=== PATIENT | female | born 1995 ===

== ENCOUNTER 2017-10-12 11:38 | Day surgery (SDC) | payer OTHER ==
[2017-10-11 10:50] VITALS: BMI 31.6
[2017-10-12] MEDS ORDERED: HYDROmorphone 0.5 mg/0.5 ml ISec IVP PRN (13:04)
[2017-10-12] MEDS ORDERED: Propofol 10 mg/ml Inj (20 ML) ONE ×2 (13:13→13:14)
[2017-10-12] MEDS ORDERED: Midazolam 2 MG/2 ML VIAL ONE (13:13)
[2017-10-12] MEDS ORDERED: Lactated Ringer's 1,000 ML IV ONE ×2 (13:15→14:50)
--- NOTE | 2017-10-12 14:10 | PCM.SURG1 ---
Surgeon's Initial Post Op Note - Surgeon's Notes Surgeon: Shea Machado MD Aircraft Structural Repair Mechanic: none Type of Anesthesia: General LMA Pre-Operative Diagnosis: REtained Intrauterine device, foreign body Operative Findings: anterverted utuers, no cervical strings from cervical os of iud, iud retained at fundus with strings wraped around body of iud anterior, removed successfuly with hyserospic resection and guidance Post-Operative Diagnosis: same as above Operation Performed: Hysterosciop removal of foreign body, intrauterine device Specimen/Specimens Removed: intrauterine device Estimated Blood Loss: EBL {In ML}: 50 Blood Products Given: N/A Drains Used: No Drains Post-Op Condition: Good Date of Surgery/Procedure: 10/12/17 Time of Surgery/Procedure: 13:00
[2017-10-12 18:37] VITALS: BP 109/77; PULSE 79; RESP 20; TEMP 98; O2SAT 97
--- NOTE | 2017-10-13 02:01 | OP ---
PROCEDURE DATE: 10/12/2017 PREOPERATIVE DIAGNOSIS: Retained intrauterine device foreign body. POSTOPERATIVE DIAGNOSIS: Retained intrauterine device foreign body. OPERATION PERFORMED: Hysteroscopic removal of foreign body intrauterine device. OPERATIVE FINDINGS: Anteverted uterus, no cervical string noted from cervical os of IUD. IUD retained at fundus with strings wrapped around the body of the IUD pointing towards the fundus, removed successfully with hysteroscopic resection . SURGEON: Shea Machado MD. FUNERAL PREARRANGEMENT COUNSELOR: None. TYPE OF ANESTHESIA: General LMA. SPECIMEN REMOVED: Intrauterine device. ESTIMATED BLOOD LOSS: 50 mL. BLOOD PRODUCTS: None. COMPLICATIONS: None. DESCRIPTION OF PROCEDURE: The patient was taken to the operating room, where she was given general anesthesia. Once it was found to be adequate, she was positioned on the operating table in dorsal supine position with the legs supported using stirrups. The patient was then prepped and draped in the usual sterile fashion. A bimanual exam was performed with above-mentioned findings. A Joaquin retractor was placed in the anterior and posterior fornix of the vagina. The cervix was adequately visualized. A single-toothed tenaculum was placed on the anterior lip of the cervix. There was no strings visualized at the cervical os. IUD hook was attempted to remove the intrauterine device, but was unsuccessful. Following this, the cervix was carefully and sequentially dilated to allow for introduction of the hysteroscope under direct visualization using normal saline as the distention media. The intrauterine device was located at the frontal position with the strings visible.. Following this, the hysteroscopic grasper was then inserted under direct visualization and hysteroscope and the IUD was then grasped and carefully resected from where it was embedded and carefully removed intact. The specimen was sent to pathology on [facility]. The hysteroscope evaluated the endometrial cavity, which appeared to be grossly normal. Bilateral ostia visualized. The hysteroscope was removed. The single-toothed tenaculum was removed. There was good hemostasis at the tenaculum puncture site. All instruments were removed. At the end of the procedure, all needle, sponge and instrument counts were noted correct x2. The patient tolerated the procedure well and was transferred to the recovery room in stable condition. Shea Machado MD
== END 2017-10-12 18:15 | disposition home or self-care (01) ==
LOC: C.SDS 11:38
PROVIDERS: ATTEND Obstetrics & Gynecology
DX: T83.39XA Other mechanical complication of intrauterine contraceptive device, initial encounter (principal); Z97.5 Presence of (intrauterine) contraceptive device
CPT/HCPCS: 58562; J1170; J2250; J2704; J3010; J7120